=== PATIENT | female | born 1970 | race Caucasian/White ===

== ENCOUNTER 2018-08-01 18:32 | Emergency (ER) | payer MEDICAID ==
[~2018-08-01] VITALS: Ht 160 cm; Wt 72.6 kg
[2018-08-01 19:16] VITALS: BP 139/94
[2018-08-01] MEDS ORDERED: AZIT250T6 PO (20:15)
--- NOTE | 2018-08-01 20:16 | PHYS DOC ---
Past Medical History Past Medical History: High Cholesterol, Hypertension, Hypothyroid Past Surgical History: Other Alcohol Use: None Drug Use: None Adult General Chief Complaint Chief Complaint: Congestion HPI HPI Patient is a 47 year old female who presents with states for the last week she has had a productive cough, facial sinus pain and green mucus production but no fever. Patient denies chest pain, shortness of air, ear pain, throat pain. Patient states she's been using ibuprofen cold and sinus. She denies any nausea , vomiting, diarrhea, abdominal pain. Review of Systems Review of Systems Constitutional: Denies fever or chills [] Eyes: Denies change in visual acuity, redness, or eye pain [] HENT: nasal congestion. Denies sore throat [] Respiratory: cough. Denies shortness of breath [] Cardiovascular: No additional information not addressed in HPI [] GI: Denies abdominal pain, nausea, vomiting, bloody stools or diarrhea [] : Denies dysuria or hematuria [] Musculoskeletal: Denies back pain or joint pain [] Integument: Denies rash or skin lesions [] Neurologic: Denies headache, focal weakness or sensory changes [] All other systems were reviewed and found to be within normal limits, except as documented in this note. Allergies Allergies Allergies Coded Allergies Type Severity Reaction Last Updated Verified codeine Allergy Unknown 08/01/18 Yes Physical Exam Physical Exam Constitutional: Well developed, well nourished, no acute distress, non-toxic appearance. [] HENT: Normocephalic, atraumatic, bilateral external ears normal, oropharynx moist, no oral exudates, nose normal. Throat red but no exudates. Sinus pressure and pain with palpation. Postnasal drip seen.[] Eyes: PERRLA, EOMI, conjunctiva normal, no discharge. [] Neck: Normal range of motion, no tenderness, supple, no stridor. [] Cardiovascular:Heart rate regular rhythm, no murmur [] Lungs & Thorax: Bilateral breath sounds clear to auscultation [] Abdomen: Bowel sounds normal, soft, no tenderness, no masses, no pulsatile masses. [] Skin: Warm, dry, no erythema, no rash. [] Back: No tenderness, no CVA tenderness. [] Extremities: No tenderness, no cyanosis, no clubbing, ROM intact, no edema. [] Neurologic: Alert and oriented X 3, normal motor function, normal sensory function, no focal deficits noted. [] Psychologic: Affect normal, judgement normal, mood normal. [] Current Patient Data Vital Signs Vital Signs Date Time Temp Pulse Resp B/P (MAP) Pulse Ox O2 Delivery O2 Flow Rate FiO2 08/01/18 19:16 97.7 98 18 139/94 (109) 98 Room Air 97.7 EKG EKG [] Radiology/Procedures Radiology/Procedures [] Course & Med Decision Making Course & Med Decision Making Patient is a 47 year old female who presents with states for the last week she has had a productive cough, facial sinus pain and green mucus production but no fever. Patient denies chest pain, shortness of air, ear pain, throat pain. Patient states she's been using ibuprofen cold and sinus. She denies any nausea , vomiting, diarrhea, abdominal pain. Patient has sinus pressure and tenderness to palpation. Bilateral ear tympanic are pearly white. Throat is reddened but there are no exudates or swelling. Lungs are clear to auscultation in all lobes. Patient states she is allergic to codeine. Patient is alert and oriented. Skin is pink warm and dry. Mucous membranes are moist. AFebrile. Diagnosis of probable sinusitis upper respiratory infection. She is given azithromycin and told to call her doctor in the morning for follow-up care. Patient is told to continue taking the [id number] cold medications. Dragon Disclaimer Dragon Disclaimer This electronic medical record was generated, in whole or in part, using a voice recognition dictation system. Departure Departure Impression: Primary Impression: Sinusitis nasal Disposition: 01 HOME, SELF-CARE Condition: STABLE Referrals: UNKNOWN PCP NAME (PCP) Patient Instructions: Sinusitis Additional Instructions: Follow-up with a primary care if not getting better. Take medications as prescribed. Continue taking [id number] cold medicine. Scripts Azithromycin (AZITHROMYCIN TABLET) 250 Mg Tablet 1 PKG PO UD, #6 TAB Prov: JOSH RAMÍREZ [employer] 08/01/18 Problem Qualifiers Primary Impression: Sinusitis nasal Sinusitis location: frontal Chronicity: unspecified Qualified Codes: J32.1 - Chronic frontal sinusitis JOSH RAMÍREZ [employer] Aug 01, 2018 20:16
== END 2018-08-01 20:25 | disposition home or self-care (01) ==
LOC: ER 18:32
DX: J32.1 Chronic frontal sinusitis (principal); E78.00 Pure hypercholesterolemia, unspecified; I10 Essential (primary) hypertension; E03.9 Hypothyroidism, unspecified; Z88.5 Allergy status to narcotic agent
CPT/HCPCS: 99283